=== PATIENT | female | born 1990 | race Caucasian/White ===

== ENCOUNTER 2018-09-19 13:45 | Emergency (ER) | payer OTHER ==
[2018-09-19 14:39] VITALS: TEMP 98; BMI 27.4
--- NOTE | 2018-09-19 14:39 | PDOC ---
History of Present Illness - General Chief Complaint: Palpitations Stated Complaint: CHEST PAIN,PALPITATIONS Time Seen by Provider: 09/19/18 14:31 History Source: Patient Exam Limitations: No Limitations - History of Present Illness Initial Comments: 09/19/18 14:39 27y F no pmhx presents with complaint of palpitations. Pt states she had a abran cold brew coffee this morning without anything else around 930-10:30, around 11, she started feeling a sensation of palitations and fluttering in her heart. she also notse she felt some spasming of her L upper arm, saw that there was some trembling on her L upper arm. these symptmos lasted approx 1 hr and was present when she arrived, but has now resolved. pt denies any cp, sob, cough ,hemoptysis, leg swelling, diarrhea, melena, bpr, dysuria, vag bleeding, vag discharge, barros, palpitations with exertion, lightheadedness. pt is on ocps, and does not have regular periods, no history of proonged menses denies etoh, recreational drug use, ivdu denies any family history Past History - Past Medical History Allergies/Adverse Reactions: Allergies Allergy/AdvReac Type Severity Reaction Status Date / Time No Known Allergies Allergy Verified 09/19/18 14:44 Home Medications: Ambulatory Orders NK [No Known Home Medication] 09/19/18 Review of Systems - Review of Systems Able to Perform ROS?: Yes Comments:: 09/19/18 14:41 Constitutional - no reported Fever, Chills, HEENT: no reported vision changes, sore throat Respiratory: no reported cough, sob, hemoptysis Cardiac: +palpitations, no reported chest pain, light headedness, leg swelling Abd/GI: no reported abd pain, nausea, vomiting, blood per rectum, melena, diarrhea : no reported dysuria, frequency, discharge Musculskelatal - +L arm cramping no reported back pain, joint swelling skin - no reported bruising, erythema, rash neurological: no reported headache, numbness, focal weakness, tingling, ataxia, hematologic: no reported easy bruising, easy bleeding *Physical Exam - Vital Signs Last Vital Signs Temp Pulse Resp BP Pulse Ox 98 F 87 18 131/85 99 09/19/18 14:30 09/19/18 14:45 09/19/18 14:45 09/19/18 14:45 09/19/18 14:45 - Physical Exam Comments: 09/19/18 14:42 GENERAL: The patient is awake, alert, and fully oriented, Nontoxic - in no acute distress. HEAD: Normocephalic, atraumatic. EYES: extraocular movements intact, sclera anicteric, conjunctiva clear. ENT: Normal voice, Moist mucous membranes. NECK: Normal range of motion, supple LUNGS: Breath sounds equal, clear to auscultation bilaterally. No wheezes, no rhonchi, no rales. HEART: Regular rate and rhythm, normal S1 and S2 without murmur, rub or gallop. ABDOMEN: Soft, nontender, normoactive bowel sounds. No guarding, no rebound. . No CVA tenderness EXTREMITIES: Normal range of motion, no edema. No clubbing or cyanosis. No cords, erythema, or tenderness. NEUROLOGICAL: No facial assymetry, Normal speech, PSYCH: Normal mood, normal affect. SKIN: Warm, Dry, normal turgor, Heart Score/ECG Review - ECG Impressions Comment:: 09/19/18 14:42 Twelve-lead EKG was performed and reviewed by me. EKG originally performed at 13:47 Will sinus rhythm, rate of 109 The axis is normal. The intervals are normal. There is normal R wave progression There are no ST or T wave abnormalities. Impression: Sinus tachycardia Medical Decision Making - Medical Decision Making 09/19/18 14:43 Patient presenting with episode of palpitations prior to arrival in the setting of having drank a large cup of cold drink coffee. That has since resolved there was no other associated symptoms including exertional symptoms, shortness of breath, nausea, vomiting nor any pain. Original heart rate upon arrival was slightly elevated at 109 it has since normalized currently it is 88 on her hospital scientist. She states that the last time she had blood work was approximately 2 years ago I offered to obtain some blood work to rule out anemia or metabolic derangements. Patient states that she would prefer to follow up with her primary care doctor. As the patient has not had any other medical problems nor any other symptoms looting vaginal bleeding, diarrhea or others complaints that may lead to symptomatic anemia or metabolic derangements , since her symptoms had resolved it is reasonable for her to follow up with the primary care doctor. I did discuss with the patient the importance of following up with her doctor, but she can always return to the ED for us to ck her basic labs. return precautions were dsicussed I discussed the physical exam findings, ancillary test results and final diagnoses with the patient. I answered all of the patient's questions. The patient was satisfied with the care received and felt comfortable with the discharge plan and treatment plan. The patient will call their primary care physician within 24 hours to arrange follow-up and will return to the Emergency Department with any new, persistent or worsening symptoms. *DC/Admit/Observation/Transfer Diagnosis at time of Disposition: Palpitations - Discharge Dispostion Disposition: HOME Condition at time of disposition: Improved Decision to Admit order: No - Referrals Referrals: Castro Gallardo MD [Staff Physician] - - Patient Instructions Printed Discharge Instructions: DI for Palpitations Additional Instructions: Return to the emergency department immediately with ANY new, persistent or worsening symptoms. I suspect that your symptoms may be secondary to the caffeine use please hold off on the caffeine. You also elected not to do blood work here please follow- up with your primary care doctor for blood work to rule out other things like anemia or electrolyte disturbances. You MUST call and follow up with your doctor in 3-4 days for further evaluation of your symptoms. Results were discussed with you. Please make sure your doctor reviews the results of your emergency evaluation. Print Language: DIVEHI - Post Discharge Activity
[2018-09-19 14:52] VITALS: BP 131/85; PULSE 87
--- NOTE | 2018-09-20 14:22 | EKG ---
Test Reason : Blood Pressure : / mmHG Vent. Rate : 109 BPM Atrial Rate : 109 BPM P-R Int : 124 ms QRS Dur : 076 ms QT Int : 338 ms P-R-T Axes : 067 055 034 degrees QTc Int : 455 ms POOR DATA QUALITY, INTERPRETATION MAY BE ADVERSELY AFFECTED SINUS TACHYCARDIA OTHERWISE NORMAL ECG NO PREVIOUS ECGS AVAILABLE Confirmed by MD Beatris, Chris ([id number]) on 09/20/2018 2:22:05 PM Referred By: Confirmed By:Chris Spear MD
== END 2018-09-19 14:53 | disposition home or self-care (01) ==
LOC: FER 13:45
DX: R00.2 Palpitations (principal)
CPT/HCPCS: 93005; 99282-25